=== PATIENT | female | born 1985 | race Caucasian/White ===

== ENCOUNTER 2024-04-04 22:17 | Emergency (ER) | payer MEDICAID ==
[~2024-04-04] VITALS: Ht 157.5 cm; Wt 118.0 kg
[2024-04-04 22:57] VITALS: O2SAT 99
[2024-04-05] MEDS: KETOROLAC 15MG/ML VIAL IM ONE (01:15)
[2024-04-05] MEDS ORDERED: NAPR-1176 MT (01:31)
[2024-04-05] MEDS ORDERED: LIDO700A15 TP (01:31)
[2024-04-05 02:00] VITALS: BP 130/89; PULSE 72; RESP 18; TEMP 98.3
== END 2024-04-05 02:01 | disposition home or self-care (01) ==
LOC: ER 22:17
DX: S40.012A Contusion of left shoulder, initial encounter (principal); W18.39XA Other fall on same level, initial encounter; Y93.89 Activity, other specified; Y92.89 Other specified places as the place of occurrence of the external cause; Y99.8 Other external cause status
CPT/HCPCS: 81025; 73030; 99283; 96372; J1885; Z7610 ×2